=== PATIENT | female | born 1955 | race Caucasian/White ===

== ENCOUNTER → 2024-05-24 12:10 | Outpatient (REF) | payer MEDICARE, OTHER, SELFPAY | LOC: HWRAD 12:10 | PROVIDERS: ATTENDING PHYSICIAN Nurse Practitioner Family | DX: R06.89 Other abnormalities of breathing (principal) | CPT/HCPCS: 71046 ==

== ENCOUNTER → 2024-06-29 12:34 | Outpatient (REF) | payer MEDICARE, OTHER, SELFPAY | LOC: RAD 12:34 | PROVIDERS: ATTENDING PHYSICIAN Nurse Practitioner Family | DX: J18.9 Pneumonia, unspecified organism (principal) | CPT/HCPCS: 71046 ==

== ENCOUNTER → 2024-09-07 06:20 | Outpatient (REF) | payer MEDICARE, OTHER, SELFPAY ==
[2024-09-07 09:53] LABS: % Basophils 1.7 % (0-2); % Eosinophils 7.1 % (0-6); % Lymphocytes 31.6 % (20.5-51.1); % Monocytes 14.1 % (1.7-9.3); % Neutrophils 45.5 % (42.2-75.2); Absolute Basophils 0.1 10^3/uL (0-0.2); Absolute Eosinophils 0.3 10^3/uL (0-0.7); Absolute Lymphocytes 1.1 10^3/uL (1.2-3.4); Absolute Monocytes 0.5 10^3/uL (0.1-0.6); Absolute Neutrophils 1.6 10^3/uL (1.4-6.5); Hematocrit 35.5 % (37.0-47.0); Hemoglobin 12.2 g/dL (12.0-16.0); Mean Corp Hgb Conc. 34.4 g/dL (33.0-37.0); Mean Corpuscular Hgb 33.5 pg (27.0-31.0); Mean Corpuscular Volume 97.5 fL (81.0-99.0); Mean Platelet Volume 9.3 fL (7.4-10.4); Nucleated Red Blood Cells % 0 %; Platelet Count 318 10^3/uL (130-400); Red Blood Cell Count 3.64 10^6/uL (4.20-5.40); Red Cell Dist. Width 12.7 % (11.5-14.5); White Blood Cell Count 3.5 10^3/uL (4.8-10.8)
[2024-09-07 11:19] LABS: ALT (SGPT) 28 U/L (0-35); AST (SGOT) 36 U/L (14-36); Albumin 4.3 g/dl (3.5-5.0); Alkaline Phosphatase 47 U/L (38-126); Blood Urea Nitrogen 18 mg/dl (7-17); Calcium 9.8 mg/dl (8.4-10.2); Carbon Dioxide 31 mmol/L (22-30); Chloride 100 mmol/L (98-107); Glucose 96 mg/dl (70-99); HDL Cholesterol 80 mg/dl; LDL Cholesterol, Calculated 46 mg/dl; Potassium 4.3 mmol/L (3.5-5.1); Sodium 140 mmol/L (135-145); Total Bilirubin 0.6 mg/dl (0.2-1.3); Total Cholesterol 136 mg/dl (50-199); Total Protein 6.8 g/dl (6.3-8.2); Triglyceride 52 mg/dl (10-149); Very Low Density Lipoprotein 10 mg/dl (0-30); eGFR > 60.00
[2024-09-07 11:47] LABS: TSH 1.32 uIU/ml (0.47-4.68)
[2024-09-07 12:04] LABS: Vitamin B12 689 pg/ml (239-931)
== END ==
LOC: HWLAB 06:20
PROVIDERS: ATTENDING PHYSICIAN Orthopaedic Surgery Hand Surgery; FAMILY PHYSICIAN Family Medicine
DX: Z01.818 Encounter for other preprocedural examination (principal); G62.9 Polyneuropathy, unspecified; Z87.19 Personal history of other diseases of the digestive system; I63.9 Cerebral infarction, unspecified; E78.5 Hyperlipidemia, unspecified; K90.0 Celiac disease
CPT/HCPCS: 36415; 80053; 80061; 82607; 84443; 85025; 93005

== ENCOUNTER → 2025-01-29 07:16 | Outpatient (REF) | payer OTHER, SELFPAY | LOC: HWWDC 07:16 | PROVIDERS: ATTENDING PHYSICIAN Physician Assistant; FAMILY PHYSICIAN Family Medicine | DX: Z12.31 Encounter for screening mammogram for malignant neoplasm of breast (principal); M15.4 Erosive (osteo)arthritis; M54.9 Dorsalgia, unspecified | CPT/HCPCS: 72114; 77063; 77067 ==

== ENCOUNTER → 2025-02-26 07:44 | Outpatient (REF) | payer OTHER, SELFPAY | LOC: HWRAD 07:44 | PROVIDERS: ATTENDING PHYSICIAN Physician Assistant; FAMILY PHYSICIAN Family Medicine | DX: M81.0 Age-related osteoporosis without current pathological fracture (principal); M85.80 Other specified disorders of bone density and structure, unspecified site | CPT/HCPCS: 77080 ==

== ENCOUNTER → 2025-05-12 06:44 | Outpatient (REF) | payer OTHER, SELFPAY | LOC: PAVMRI 06:44 | PROVIDERS: ATTENDING PHYSICIAN Family Medicine | DX: M54.16 Radiculopathy, lumbar region (principal); R52 Pain, unspecified; M54.50 Low back pain, unspecified | CPT/HCPCS: 72148 ==

== ENCOUNTER → 2025-10-05 06:38 | Outpatient (REF) | payer OTHER, SELFPAY | LOC: HWRAD 06:38 | PROVIDERS: ATTENDING PHYSICIAN Family Medicine | DX: N28.1 Cyst of kidney, acquired (principal); Q61.00 Congenital renal cyst, unspecified | CPT/HCPCS: 76775 ==